=== PATIENT | female | born 1940 | race Caucasian/White ===

== ENCOUNTER 2018-09-20 10:07 | Day surgery (SDC) | payer MEDICARE, BC ==
[~2018-09-20 10:07] MED LIST: LIDOCAINE HCL 1% MPF 30 SOL ONE; PROPOFOL 500 MG/50 ML EMU IV ONE
[2018-09-20 12:39] VITALS: RESP 16
[2018-09-20 12:48] VITALS: O2SAT 96
[2018-09-20 12:58] VITALS: BP 146/69; PULSE 80; TEMP 98.1
== END 2018-09-20 13:10 | disposition home or self-care (01) | DRG 951 ==
LOC: SURG 10:07
PROVIDERS: ATTEND Surgery
DX: Z12.11 Encounter for screening for malignant neoplasm of colon (principal); Z85.038 Personal history of other malignant neoplasm of large intestine; K63.89 Other specified diseases of intestine; D12.0 Benign neoplasm of cecum
CPT/HCPCS: J2001; J2704